=== PATIENT | male | born 2005 | race Caucasian/White ===

== ENCOUNTER 2023-02-01 07:30 | Observation (INO) ==
[2023-02-01] MEDS ORDERED: Lactated Ringers 1000 ml BAG 1,000 ML IV ONE (07:54)
[2023-02-01] MEDS ORDERED: Ondansetron 4 mg VIAL 2 MG/ML 2 ml VIAL IV ONE (07:54)
[2023-02-01] MEDS ORDERED: Iohexol 350 (CONTRAST) 500 ML MDV IV ONE (08:02)
[2023-02-01 08:40] LABS: ABS Lymphocytes 0.7 10^3/uL (1.0-4.8); ABS Monocytes 0.6 10^3/uL (0.0-1.1); ABS Nucleated RBC 0.08 10^3/ul; Hematocrit 45.3 % (38-53); Lymphocyte % 5.8 %; Mean Corpuscular Hemoglobin 28.5 pg (27-33); Mean Corpuscular Hgb Conc 35.2 g/dL (31-36); Nucleated Red Blood Cells % 0.6 /100 WBC (0.0-0.4); Platelet Count 199 10^3/uL (150-450); Red Blood Count 5.59 10^6/uL (4.06-5.63); Red Cell Distribution Width 12.9 % (12-17); White Blood Count 12.3 10^3/uL (3.6-10.2)
[2023-02-01 08:51] LABS: INR 1.23 (0.83-1.13)
[2023-02-01 09:02] LABS: Albumin 4.8 g/dL (3.2-5.2); Albumin/Globulin Ratio 1.7 (1-3); C Reactive Protein 7.23 mg/L (<8.01); Calcium 9.6 mg/dL (8.6-10.3); Creatinine, Serum 0.98 mg/dL (0.67-1.17); Globulin 2.8 g/dL (2-4); Potassium 4.2 mmol/L (3.5-5.0); Total Bilirubin 0.8 mg/dL (0.2-1.0); Total Protein 7.6 g/dL (6.4-8.9); eGFR CKD-EPI 113.9 (>60)
[2023-02-01] MEDS ORDERED: Piperacillin/Tazobac 3.375 BAG 3.375 GM/100 ML BAG IV ONE (11:40)
[2023-02-01] MEDS ORDERED: Ondansetron 4 mg VIAL 2 MG/ML 2 ml VIAL IV PRN ×2 (12:00→14:35)
[2023-02-01] MEDS ORDERED: HYDROmorphone 0.5 MG/0.5 ML SYRINGE IV SLOW PU PRN ×2 (12:00→16:07)
[2023-02-01] MEDS ORDERED: D5W 1/2 NS KCl 20 meq 1000 ml 1,000 ML IV SCH (13:00)
[2023-02-01] MEDS ORDERED: Naloxone 0.4 mg VIAL 0.4 mg/ml 1 ml VIAL IV PRN (14:35)
[2023-02-01] MEDS ORDERED: HYDROmorphone 1 MG/1 ML SYRINGE IV PRN (14:35)
[2023-02-01] MEDS ORDERED: Dexamethasone IV 4 MG/ML VIAL 1 ml VIAL ONE (14:40)
[2023-02-01] MEDS ORDERED: Ondansetron 4 mg VIAL 2 MG/ML 2 ml VIAL ONE ×2 (14:40→16:20)
[2023-02-01] MEDS ORDERED: Lidocaine 2% PF 5 ML VIAL ONE (14:40)
[2023-02-01] MEDS ORDERED: Propofol 10 MG/ML 20 ML BTL ONE (14:40)
[2023-02-01] MEDS ORDERED: Rocuronium 50 mg VIAL 10 mg/ml 5 ml VIAL (50 mg) ONE (14:40)
[2023-02-01] MEDS ORDERED: HYDROmorphone 0.5 MG/0.5 ML SYRINGE ONE (15:16)
[2023-02-01] MEDS ORDERED: Piperacillin/Tazobac 3.375 BAG 3.375 GM/100 ML BAG IV SCH (17:00)
[2023-02-02] MEDS ORDERED: Influenza vaccine *QUAD* *2023-24* 0.5 ML SYRINGE IM ONE (09:00)
[2023-02-02 09:57] VITALS: BP 109/63
== END 2023-02-02 10:45 | disposition home or self-care (01) ==
LOC: EDHOLD 07:30 → ED 07:30 → AA 13:03 → SSU 17:37
PROVIDERS: ADMIT Surgery; ATTEND Surgery